=== PATIENT | female | born 1985 | race Two or more races ===

== ENCOUNTER 2021-05-21 04:24 | Emergency (ER) | payer MEDICAID ==
[~2021-05-21] VITALS: Ht 160 cm; Wt 70.3 kg
[2021-05-21 04:27] VITALS: BP 145/69
== END 2021-05-21 05:57 | disposition left against medical advice (07) ==
LOC: ER 04:24
DX: O20.8 Other hemorrhage in early pregnancy (principal); Z3A.11 11 weeks gestation of pregnancy; Z53.21 Procedure and treatment not carried out due to patient leaving prior to being seen by health care provider

== ENCOUNTER 2021-06-21 21:30 | Emergency (ER) | payer MEDICAID ==
[~2021-06-21] VITALS: Ht 157.5 cm; Wt 81.6 kg
[2021-06-21 22:25] LABS: Basophils # (auto) 0 10 ^3/uL (0-0.2); Basophils % (auto) 0.2 % (0.0-2.0); Eosinophils # (auto) 0.2 10 ^3/uL (0-0.8); Eosinophils % (auto) 1.7 % (0.0-7.0); Hematocrit 32.9 % (36.0-46.0); Hemoglobin 10.9 g/dL (12.2-16.2); Lymphocytes # (auto) 2.4 10 ^3/uL (0.4-5.4); Lymphocytes % (auto) 26.8 % (10.0-50.0); Mean Corpuscular Hemoglobin 28.2 pg (28.0-32.0); Mean Corpuscular Hgb Conc. 33.2 g/dL (32.0-36.0); Mean Corpuscular Volume 85.1 fL (80.0-100.0); Monocytes # (auto) 0.5 10 ^3/uL (0-1.3); Monocytes % (auto) 5.5 % (0.0-12.0); Neutrophils # (auto) 5.8 10 ^3/uL (1.6-8.6); Neutrophils % (auto) 65.8 % (37.0-80.0); Red Blood Cells 3.87 10^6/uL (4.0-5.20); Red Cell Distribution Width 16.1 % (11.8-14.3); White Blood Cell 8.8 10^3/uL (4.4-10.8)
[2021-06-21] MEDS ORDERED: SODIUM CHLORIDE 0.9% 1,000 ML IV ONE (22:45)
[2021-06-21 22:48] LABS: Albumin 2.7 g/dL (3.4-5.0); Calcium 8.4 mg/dL (8.5-10.1); Potassium 3.6 mmol/L (3.5-5.1)
[2021-06-21 22:50] LABS: BUN/Creatinine Ratio 14.3
[2021-06-21 22:52] LABS: Bilirubin, Total 0.2 mg/dL (0.2-1.0); Total Protein 6.2 g/dL (6.4-8.2)
[2021-06-21 23:02] LABS: INR 0.99 (0.9-1.15)
[2021-06-22 04:00] VITALS: BP 96/55
== END 2021-06-22 06:15 | disposition home or self-care (01) ==
LOC: EDBD 21:30 → ER 21:33
DX: O20.0 Threatened abortion (principal); Z3A.16 16 weeks gestation of pregnancy
CPT/HCPCS: 36415; 76805; 80053; 84702; 85025; 85610; 85730; 86850; 86900; 86901; 96360; 99285; J7030